=== PATIENT | female | born 1980 | race Hispanic/Latino ===

== ENCOUNTER 2024-05-02 08:34 | Emergency (ER) | payer OTHER ==
[~2024-05-02] VITALS: Ht 167.6 cm; Wt 94.8 kg
[2024-05-02 09:17] LABS: BASOPHILS # (AUTO) 0.03 K/uL (0.00-0.20); BASOPHILS % (AUTO) 0.5 % (0.0-5.0); EOSINOPHILS # (AUTO) 0.03 K/uL (0.00-0.70); EOSINOPHILS % (AUTO) 0.5 % (0.0-8.0); HEMATOCRIT 32.9 % (36-48); IMMATURE GRANULOCYTE ABSOLUTE 0.02 K/uL (0-1); LYMPHOCYTES # (AUTO) 0.8 K/uL (1.0-4.8); LYMPHOCYTES % (AUTO) 12.6 % (21.0-51.0); MEAN CORPUSCULAR HEMOGLOBIN 25.6 pg (27.0-33.0); MEAN CORPUSCULAR VOLUME 82.7 fL (79-99); MONOCYTES # (AUTO) 0.3 K/uL (0.1-1.0); MONOCYTES % (AUTO) 4.7 % (3.0-13.0); NEUTROPHILS # (AUTO) 5.2 K/uL (1.8-7.7); NEUTROPHILS % (AUTO) 81.4 % (40.0-77.0); PLATELET COUNT (AUTO) 251 K/uL (130-400); RED BLOOD CELL COUNT(AUTO) 3.98 MIL/uL (4.00-5.50); RED CELL DISTRIBUTION WIDTH 15.5 % (11.0-15.5); WHITE BLOOD COUNT (AUTO) 6.4 K/uL (4.8-10.8)
[2024-05-02 09:22] LABS: APPEARANCE,URINE TURBID (CLEAR); BILIRUBIN,URINE NEGATIVE (NEGATIVE); COLOR,URINE YELLOW (YELLOW); GLUCOSE, URINE (UA) 50 mg/dL (NEGATIVE); KETONES,URINE NEGATIVE (NEGATIVE); LEUKOCYTE ESTERASE ,URINE NEGATIVE Leu/uL (NEGATIVE); NITRATE,URINE NEGATIVE (NEGATIVE); OCCULT BLOOD,URINE LARGE (NEGATIVE); PROTEIN,URINE 30 mg/dL (NEGATIVE); UROBILINOGEN,URINE 0.2 mg/dL (0.2-1.0)
[2024-05-02 09:25] LABS: CREATININE 0.7 mg/dL (0.5-1.0); POTASSIUM 3.7 mmol/L (3.5-5.1)
[2024-05-02 09:26] LABS: ADD UA MICROSCOPIC YES; HCG,QUALITATIVE URINE NEGATIVE (NEGATIVE)
[2024-05-02 09:34] LABS: BACTERIA,URINE FEW /HPF (None Seen); MUCUS,URINE MANY LPF (None Seen); RBC,URINE 51-100 /HPF (0-1); SQUAMOUS EPITHELIAL CELL,UR FEW /HPF (0-2)
[2024-05-02 09:37] LABS: ALANINE AMINOTRANSFERASE 33 U/L (12-78); ALBUMIN 3.6 g/dL (3.5-5.0); ASPARTATE AMINOTRANSFERASE 42 U/L (10-37); BILIRUBIN,DIRECT < 0.1 mg/dL (0.0-0.3); BILIRUBIN,TOTAL 0.2 mg/dL (0.2-1.0)
--- NOTE | 2024-05-02 09:38 | ERN ---
ED Note History of Present Illness Stated Complaint: ABDOMINAL PAIN Chief Complaint: Abdominal Pain Time Seen by MD: 08:36 Dictation: 43-year-old female presents to the ED for evaluation of right lower quadrant abdominal pain onset last night worsening this morning. Patient reports nausea and states her pain radiates down her right leg, but denies any vomiting, dysuria or hematuria. Patient reports she took Tylenol at home and is stating her symptoms are improving. Patient is currently on her menstrual cycle. Allergies: Coded Allergies: No Known Drug Allergies (Unverified Allergy, Unknown, 05/02/24) Home Meds Active Scripts Dicyclomine HCl (Bentyl) 20 Mg Tab, 1 TAB PO BID for irritable bowel symptoms for 5 Days, #10 TAB 0 Refills Prov:ERIKA ACOSTA MD 05/02/24 Past Medical History Past Medical History: Diabetes-Type II Surgical History: None LMP: Apr 28, 2024 Review of System Dictation Constitutional: Negative for fever,chills, and weight loss Eyes: Negative for injury, pain,redness, and discharge ENT: Negative for injury,pain or swelling Cardiovascular: Negative for chest pain, palpitations, and edema Respiratory: Negative for shortness of breath, cough, and wheezing, Abdomen/GI: Positive for abdominal pain and nausea negative for vomiting, diarrhea, and constipation Back: Negative for injury and pain : Negative for injury, bleeding and discharge MS/Extremity: Positive for right leg pain Negative for injury and deformity Skin: Negative for rash, and discoloration Neuro: Negative for headache, weakness, numbness, tingling, and seizure Psych: Negative for suicide ideation, homicidal ideation, and hallucinations Initial Vital Sign VS Vital Signs Date Time Temp Pulse Resp B/P (MAP) Pulse Ox O2 Delivery O2 Flow Rate FiO2 05/02/24 08:36 97.9 75 20 133/86 97 0 05/02/24 09:15 Room Air* 21 Physical Exam Dictation General: awake, alert, NAD Head/Face: Normocephalic, atraumatic Eyes: PERRL, EOMI, vision at baseline ENT: oral cavity clear, TMs clear, no signs of infection Neck: Trachea midline, supple, no nuchal rigidity Cardiovascular: RRR, normal S1/S2, No MRGs, no JVD Respiratory: CTAB, no respiratory distress, No rales or wheezes Abdomen: Soft, mild right lower quadrant tenderness, non-distended, normal bowel sounds, no guarding or rebound. Skin: Warm, dry, normal turgor, no rash MS/Extremity: Pulses equal, no cyanosis, neurovascular intact, FROM Neuro: COAx4, GCS 15, strength 5/5, CN 2-12 intact, normal cerebellar exam, normal gait, Psych: Normal behavior, mood, and affect normal Results (Laboratory/Radiology) Laboratory/Radiology Laboratory Tests Test 05/02/24 09:05 White Blood Count 6.4 K/uL (4.8-10.8) Red Blood Count 3.98 MIL/uL (4.00-5.50) L Hemoglobin 10.2 g/dL (12.0-16.0) L Hematocrit 32.9 % (36-48) L Mean Corpuscular Volume 82.7 fL (79-99) Mean Corpuscular Hemoglobin 25.6 pg (27.0-33.0) L Mean Corpuscular Hemoglobin Concent 31.0 g/dL (32.0-36.0) L Red Cell Distribution Width 15.5 % (11.0-15.5) Platelet Count 251 K/uL (130-400) Mean Platelet Volume 12.0 fL (7.5-10.5) H Immature Granulocyte % (Auto) 0.3 % (0-1) Neutrophils (%) (Auto) 81.4 % (40.0-77.0) H Lymphocytes (%) (Auto) 12.6 % (21.0-51.0) L Monocytes (%) (Auto) 4.7 % (3.0-13.0) Eosinophils (%) (Auto) 0.5 % (0.0-8.0) Basophils (%) (Auto) 0.5 % (0.0-5.0) Neutrophils # (Auto) 5.2 K/uL (1.8-7.7) Lymphocytes # (Auto) 0.8 K/uL (1.0-4.8) L Monocytes # (Auto) 0.3 K/uL (0.1-1.0) Eosinophils # (Auto) 0.03 K/uL (0.00-0.70) Basophils # (Auto) 0.03 K/uL (0.00-0.20) Absolute Immature Granulocyte (auto 0.02 K/uL (0-1) Nucleated Red Blood Cells 0.0 % (0.0-0.19) Red Blood Cell Morphology See comments Urine Color YELLOW (YELLOW) Urine Appearance TURBID (CLEAR) Urine pH 5.0 (5.0-8.0) Urine Specific [place] 1.034 (1.001-1.031) Urine Protein 30 mg/dL (NEGATIVE) H Urine Glucose (UA) 50 mg/dL (NEGATIVE) H Urine Ketones NEGATIVE mg/dL (NEGATIVE) Urine Occult Blood LARGE (NEGATIVE) H Urine Nitrate NEGATIVE (NEGATIVE) Urine Bilirubin NEGATIVE mg/dL (NEGATIVE) Urine Urobilinogen 0.2 mg/dL (0.2-1.0) Urine Leukocyte Esterase NEGATIVE [place]/uL Urine RBC 51-100 /HPF (0-1) H Urine WBC None /HPF (0-1) Urine Squamous Epithelial Cells FEW /HPF (0-2) Urine Amorphous Crystals (Auto) RARE /LPF (None Seen) Urine Bacteria FEW /HPF (None Seen) Urine HCG, Qualitative NEGATIVE (NEGATIVE) Sodium Level 140 mmol/L (136-145) Potassium Level 3.7 mmol/L (3.5-5.1) Chloride Level 106 mmol/L (101-111) Carbon Dioxide Level 25 mmol/L (21-32) Blood Urea Nitrogen 16 mg/dL (7-18) Creatinine 0.7 mg/dL (0.5-1.0) Glomerular Filtration Rate Calc 110 mL/min (>90) Random Glucose 164 mg/dL (70-105) H Total Calcium 8.2 mg/dL (8.5-10.1) L Total Bilirubin 0.2 mg/dL (0.2-1.0) Direct Bilirubin < 0.1 mg/dL (0.0-0.3) Aspartate Amino Transf (AST/SGOT) 42 U/L (10-37) H Alanine Aminotransferase (ALT/SGPT) 33 U/L (12-78) Alkaline Phosphatase 94 U/L (50-136) Total Protein 7.0 g/dL (6.0-8.3) Albumin 3.6 g/dL (3.5-5.0) Lipase 38 U/L (16-77) Labs Reviewed?: Yes CT Scan Comment: REASON: RLQ pain ORDERING PHYSICIAN: ERIKA ACOSTA MD PROCEDURE: ABD PELVWO - CT ABD/PEL WO CON RENAL/APPY CT ABD/PEL WO CON RENAL/APPY REASON: RLQ pain COMPARISON: None. FINDINGS: Lung bases are clear. There is moderate hepatic steatosis. The liver may be mildly enlarged. There are no focal liver lesions.. There are normal-appearing kidneys.. Spleen and pancreas appear unremarkable. The gallbladder appears normal as well. Bowel loops appear unremarkable. This includes normal appearance of the appendix There is no evidence of free fluid or intraperitoneal air. There are no focal fluid collections. Aorta and retroperitoneum appear normal. There is a well-circumscribed 3.7 cm right ovarian cyst or dominant follicle. Pelvic soft tissues appear otherwise unremarkable. The anterior abdominal wall is intact. Osseous structures appear unremarkable. IMPRESSION: 1. Moderate hepatic steatosis, the liver may be mildly enlarged, there are no focal liver lesions. 2. 3.7 cm simple cyst or dominant follicle right ovary. 3. Otherwise unremarkable noncontrast CT abdomen and pelvis including normal appearance of the appendix. CT was performed with one or more following dose reduction techniques: automated exposure control, adjustment of the mA and kv according to patient's size, or use of a iterative reconstruction technique. DICTATED BY: TANJA COPPOLA MD DATE: 05/02/24 1027 ED Course ED Course Orders Procedure Category Date Status Time Vital Signs Per CPOE 05/02/24 Transmitted Routine 08:45 Saline Lock Iv CPOE 05/02/24 Transmitted 08:45 Cbc With Differential LAB 05/02/24 Complete 08:45 Lipase LAB 05/02/24 Complete 08:45 Urinalysis Profile LAB 05/02/24 Complete 08:45 Basic Metabolic Panel LAB 05/02/24 Complete 08:45 ,Urine Test LAB 05/02/24 Complete 08:45 Hepatic Function Panel LAB 05/02/24 Complete 08:48 Ct Abd/Pel Wo Con CT 05/02/24 Resulted Renal/Appy 09:23 Ondansetron 4mg Inj PHA 05/02/24 Complete (Zofran 4mg Inj) 09:30 Ketorolac PHA 05/02/24 Complete Tromethamine 15mg/Ml 09:30 Current Medications Medications (Trade) Dose Ordered Sig/Sandra Route PRN Reason Start Time Stop Time Status Last Admin Dose Admin Ketorolac Tromethamine (toRADol) 15 mg ONCE ONCE IV 05/02/24 09:30 05/02/24 09:31 DC 2/19/25 09:59 Ondansetron HCl (zoFRAN 4MG INJ) 4 mg ONCE ONCE IVP 05/02/24 09:30 05/02/24 09:31 DC 05/02/24 09:58 Vital Signs Date Time Temp Pulse Resp B/P (MAP) Pulse Ox O2 Delivery O2 Flow Rate FiO2 05/02/24 10:20 97.9 74 16 105/67 97 Room Air* 0 21 05/02/24 09:15 97.9 63 16 115/63 98 Room Air* 0 21 05/02/24 08:36 97.9 75 20 133/86 97 0 Medical Decision Making MDM MDM: Differential diagnosis: abdominal pain, ovarian cyst, appendicitis Risk of complication and/or morbidity or mortality of patient management: None Medications-Per medication reconciliation Need for hospitalization: Patient does not meet criteria for hospitalization. Need for emergency major/minor surgery: No There are no social concerns with this patient. Prescription drug management Prescriptions will include symptomatic care I independently interpreted the test that were performed, results were reviewed by me and considered findings on radiology if ordered. DX & DISP Disposition: Discharge Departure Impression: Primary Impression: Acute abdominal pain Condition: Stable Scripts Dicyclomine HCl (Bentyl) 20 Mg Tab 1 TAB PO BID for irritable bowel symptoms for 5 Days, #10 TAB 0 Refills Prov: ERIKA ACOSTA MD 05/02/24 Referrals: SELF,REFERRAL (PCP) ERIKA ACOSTA MD May 02, 2024 09:38
[2024-05-02] MEDS: ondanSETRON 4MG INJ IVP ONE (09:58)
[2024-05-02] MEDS: ketOROlac 15MG/ML VIAL (15MG/ML) IV ONE (09:59)
--- NOTE | 2024-05-02 10:13 | NUR ---
PT IS AT CT SCAN
--- NOTE | 2024-05-02 10:32 | HMCIMG ---
CT ABD/PEL WO CON RENAL/APPY REASON: RLQ pain COMPARISON: None. FINDINGS: Lung bases are clear. There is moderate hepatic steatosis. The liver may be mildly enlarged. There are no focal liver lesions.. There are normal-appearing kidneys.. Spleen and pancreas appear unremarkable. The gallbladder appears normal as well. Bowel loops appear unremarkable. This includes normal appearance of the appendix There is no evidence of free fluid or intraperitoneal air. There are no focal fluid collections. Aorta and retroperitoneum appear normal. There is a well-circumscribed 3.7 cm right ovarian cyst or dominant follicle. Pelvic soft tissues appear otherwise unremarkable. The anterior abdominal wall is intact. Osseous structures appear unremarkable. IMPRESSION: 1. Moderate hepatic steatosis, the liver may be mildly enlarged, there are no focal liver lesions. 2. 3.7 cm simple cyst or dominant follicle right ovary. 3. Otherwise unremarkable noncontrast CT abdomen and pelvis including normal appearance of the appendix. CT was performed with one or more following dose reduction techniques: automated exposure control, adjustment of the mA and kv according to patient's size, or use of a iterative reconstruction technique.
[2024-05-02] MEDS ORDERED: DICY20TA2 PO (10:47)
[2024-05-02 11:01] VITALS: BP 108/60; PULSE 80; RESP 15; TEMP 98.3; O2SAT 97
== END 2024-05-02 11:06 | disposition home or self-care (01) ==
LOC: EDH 08:34
DX: R10.31 Right lower quadrant pain (principal); E11.9 Type 2 diabetes mellitus without complications; Z79.899 Other long term (current) drug therapy
CPT/HCPCS: 99285; 74176; 96374; 96375; 80076; 80048; 83690; 85025; 81001; 81025; 36415; J1885; J2405